=== PATIENT | male | born 1960 | race American Indian/Alaskan Native ===

== ENCOUNTER 2021-11-06 17:12 | Emergency (ER) | payer OTHER ==
[2021-11-06] MEDS ORDERED: Lidocaine 1% PF 2 ML SDV INJECT ONE (17:46)
[2021-11-06] MEDS ORDERED: HYDROmorphone 1 MG/ML Syringe IVPUSH ONE (17:46)
[2021-11-06] MEDS ORDERED: Ondansetron 4 MG/2 ML SDV IVPUSH ONE (17:47)
[2021-11-06] MEDS ORDERED: fentaNYL 50 MCG/ML SDV IVPUSH ONE (17:48)
[2021-11-06] MEDS: Diphtheria,Pertussis(Acell),Tetanus Vaccine 0.5 ML Syringe IM ONE ×2 (18:20→18:35)
[2021-11-06] MEDS ORDERED: Acetaminophen/HYDROcodone 325-5 MG Tab PO ONE (19:04)
== END 2021-11-06 19:52 | disposition home or self-care (01) ==
LOC: MW.ED 17:12
DX: S43.004A Unspecified dislocation of right shoulder joint, initial encounter (principal); S01.312A Laceration without foreign body of left ear, initial encounter; Z91.013 Allergy to seafood; Z23 Encounter for immunization; W01.10XA Fall on same level from slipping, tripping and stumbling with subsequent striking against unspecified object, initial encounter
CPT/HCPCS: 12011; 23650; 73030; 96374; 96375; 99283; A9270; J2405; J3010; 90715